=== PATIENT | male | born 1980 | race African-American/Black ===

== ENCOUNTER 2020-04-18 01:25 | Emergency (ER) | payer MEDICAID ==
[~2020-04-18] VITALS: Ht 175.3 cm; Wt 86.2 kg
[2020-04-18 01:35] VITALS: Ht 175.3 cm; Wt 86.2 kg
[2020-04-18 03:06] VITALS: BP 143/103
== END 2020-04-18 03:06 ==
LOC: ED 01:25
DX: M25.562 Pain in left knee (principal); Z02.79 Encounter for issue of other medical certificate

== ENCOUNTER 2020-04-18 01:25 | Emergency (ER) | payer OTHER | END 2020-04-18 03:06 | LOC: ED 01:25 | DX: Z02.89 Encounter for other administrative examinations (principal) ==